=== PATIENT | female | born 1965 | race Caucasian/White ===

== ENCOUNTER → 2019-05-04 12:59 | Outpatient (CLI) | payer OTHER, MEDICAID, SELFPAY ==
--- NOTE | 2019-05-04 16:00 | DIET.PN ---
DIABETES Nutrition Initial Assessment:? ASSESS:?? 54 yof referred for type 2 diabetes. Pt with long standing hx (20 yrs). States she has lost 42# since starting the keto diet in September. She has been monitoring her BG up to 4x/day. States she would like to continue to lose weight and hopes to be able to reduce insulin. She is scheduled to meet with an guest experience manager next month to discuss insulin titration as she has been doing this on her own based on new dietary changes and recent weight loss. ?? LABS: Per pt report:? A1c: 5.9 (down from 7.4) FB-144 evenin-170 ? MEDS:??lantus 32u am/pm (down from 46u) Humalog SSI ? DIET: Per 24-hour recall:? Keto. High in veggies and lean meats. ? Weight: 225lb (down 42lb) ? Exercise:? walking/gardening NUTRITION DX 1. Altered Nutrition related labs related to impaired glucose metabolism, lack of previous exposure to accurate nutrition information as evidenced by pt report, dx of diabetes, previous diet high in refined carbohydrates.? INTERVENTION(s): 1. Discussed pathophysiology of diabetes. Reviewed A1c and its correlation to blood glucose numbers. Discussed recommended BG ranges. 2. Discussed importance of self-monitoring, how often, and when to check. 3. Reviewed hyper/hypoglycemia and treatment. 4. Reviewed safe disposal of equipment (strip/lancets/insulin needles). 5. Discussed impact of nutrition/diet on blood sugar control.? Discussed fed versus non-fed state.?? 6. Discussed the effect of carbohydrates/protein/fat on blood sugar control.? Stressed importance of consistent carbohydrate intake at each meal and provided instructions for recommended servings/portions of carbohydrates/protein per meal. Provided pt with educational material. 7. Reviewed carbohydrate counting and measuring carbohydrate content via serving sizes and reading nutrition labels.? Provided handouts.?? 8. Discussed the difference between simple versus complex carbohydrates and the effect of fiber on blood sugar control.? Discussed various methods to increase fiber content in diet. 9. Stressed importance of meal timing and not going >4-5 hours between meals. Encouraged adding protein to each meal to support glucose control. Provided list of protein foods. Discussed best protein options for heart health and to alleviate hunger. Patient agreeable. 10. Discussed healthy weight loss through diet and exercise to increase lean muscle mass.? Pt agreeable to walking daily and adding resistance training. MONITOR/EVALUATE: Anticipate good compliance.? Nutrition follow up schedule for 1 mo to review BG, weight, food record.
== END ==
PROVIDERS: Visit Provider Nurse Practitioner Family
DX: E11.9 Type 2 diabetes mellitus without complications (principal)
CPT/HCPCS: 97802

== ENCOUNTER → 2019-07-18 13:21 | Outpatient (CLI) | payer OTHER, MEDICAID, SELFPAY | PROVIDERS: PCP Nurse Practitioner Family; Visit Provider Internal Medicine Hematology & Oncology | DX: C50.912 Malignant neoplasm of unspecified site of left female breast (principal) | CPT/HCPCS: 77080; 77081 ==

== ENCOUNTER → 2019-07-20 08:58 | Outpatient (CLI) | payer OTHER, MEDICAID, SELFPAY ==
--- NOTE | 2019-07-20 09:02 | DI.MRI.S_ITS ---
BREAST MRI OF BOTH BREASTS: 07/20/2019 CLINICAL: Breast MRI. PROCEDURE: MR BREAST BI WO/W CON INDICATIONS: breast cancer TECHNIQUE: The patient was placed prone in a dedicated breast imaging coil. Precontrast axial STIR and 3D FLASH without fat saturation sequences were obtained. Both before and after bolus injection of contrast, sequential 1-minute axial 3D FLASH with fat saturation sequences for 3 time points, with subtraction images and maximum intensity projections (MIP's) generated. Delayed sagittal FLASH images with fat saturation were also obtained. Computer-aided detection, including computer algorithm analysis of MRI image data for lesion detection and characterization, pharmacokinetic analysis, with further physician review for interpretation, was performed. COMPARISON: [facility], [facility], US RIGHT BREAST, 12/21/2015, 12:49. MARAH Bello, MRI BREAST BILATERAL W / WO CONTRAST, 12/06/2015, 15:30. FINDINGS: Image quality: Patient is status post bilateral mastectomy with TRAM flap placement. Right breast: The right breast implant is intact. A 6 mm diameter enhancing soft tissue nodule is redemonstrated at 6:00 middle depth which has an unchanged appearance when compared with the MRI dated 12/06/15. Small vessels are present at the hilum of this mass consistent with a small lymph node. A 4 mm diameter enhancing nodule is present along the lateral aspect of the TRAM flap that the 9:00 position (series 12, image 62). This demonstrates a subtle, fatty hilum suggesting a normal-appearing lymph node. This is new when compared with the prior MRI dated 12/06/15. Left breast: The left breast implant is intact. No suspicious foci of enhancement or suspicious mass lesions. Miscellaneous: No axillary adenopathy. No intramammary adenopathy. Visualized portions of the lungs and mediastinum are grossly unremarkable. The heart is moderately enlarged, as before. No suspicious marrow enhancement where visualized. IMPRESSION: NEGATIVE 1. Status post bilateral mastectomy with TRAM flap placement and implant placement. Implants are intact. 2. No suspicious enhancement. BIRADS 1: Negative. This exam was interpreted at Station ID: [id number]. Electronically Signed By: Meg gamino/:07/20/2019 16:20:52 letter sent: Normal Exam ACR BI-RADS Category 1: Negative 3341F
[2019-07-20 10:41] LABS: Add Manual Diff / Slide Review NO; Basophils Absolute Auto 0 /uL (0-100); Basophils Percent Auto 0.3 % (0-2); Eosinophils Absolute Auto 100 /uL (0-450); Eosinophils Percent Auto 1.1 % (2-4); Hematocrit 39.6 % (36-46); Hemoglobin 13.6 g/dL (12.0-16.0); Lymphocytes Absolute Auto 900 /uL (1100-4500); Lymphocytes Percent Auto 14.3 % (25-40); Mean Corpuscular HGB Conc 34.4 % (30-36); Mean Corpuscular Hemoglobin 31.1 PG (26-34); Mean Corpuscular Volume 90.6 fL (80-100); Monocytes Absolute Auto 200 /uL (0-900); Monocytes Percent Auto 3.8 % (3-14); Neutrophils Absolute Auto 5100 /uL (1500-7000); Neutrophils Percent Auto 80.5 % (50-75); Platelet Count 218 X10^3/uL (150-400); Red Blood Cell Count 4.38 X10^6/uL (4.0-5.2); Red Cell Distribution Width 13.5 % (11.6-14.8); White Blood Cell Count 6.4 X10^3/uL (4.5-11.0)
[2019-07-20 11:17] LABS: Alanine Aminotransferase 61 IU/L (9-52); Albumin 4.5 g/dL (3.5-5.0); Albumin Globulin Ratio 1.7 (1.0-2.8); Alkaline Phosphatase 131 U/L (38-126); Aspartate Aminotransferase 35 IU/L (14-36); Bilirubin Total 0.6 mg/dL (0.2-1.3); Blood Urea Nitrogen 20 mg/dL (7-17); Calcium 9.9 mg/dL (8.4-10.2); Carbon Dioxide 28 mmol/L (22-32); Chloride 105 mmol/L (98-107); Estimated Glomerular Filt Rate > 60.0 mL/min (>60); Globulin 2.6 g/dL (1.7-4.1); Glucose 140 mg/dL (70-100); HEMOLYSIS < 15 (0-50); Potassium 4.4 mmol/L (3.4-5.1); Sodium 143 mmol/L (137-145); Total Protein 7.1 g/dL (6.3-8.2)
== END ==
PROVIDERS: PCP Nurse Practitioner Family; Visit Provider Internal Medicine Hematology & Oncology
DX: C50.912 Malignant neoplasm of unspecified site of left female breast (principal)
CPT/HCPCS: 36415; 77049; 80053; 85025; A9579

== ENCOUNTER → 2019-07-21 15:00 | Oncology outpatient (ONC) | payer MEDICARE, OTHER, MEDICAID, SELFPAY ==
[2019-06-27 10:46] VITALS: BP 137/77; PULSE 56; RESP 16; TEMP 36.8; O2SAT 98
--- NOTE | 2019-06-27 10:49 | ONC.CONS ---
History of Present Illness - Data of Consult Patient: new to practice Consult date: 06/27/19 Requesting Physician: YOUSUF Cobb Primary Care Provider: YOUSUF Cobb - Consult Narrative Reason for consult: Breast Cancer Narrative: Bev Aly is a 54 year old female with left breast cancer. Oncology History: She was diagnosed with multifocal T2 T1a moderately differentiated ductal carcinoma of the left breast on April 12, 2014. She underwent bilateral mastectomies with reconstruction on May 02, [address] Sandie Quick and Dr. Wheeler. Her breast cancer was ER positive, AK positive, and HER-2 negative, node positive, with DCIS present. Her cancer OncoType Dx score was 12. She completed adjuvant chemotherapy with CMF. Cytoxan was stopped early on September 2014 and patient chose to complete treatment earlier due to symptomatic side effects. She then completed adjuvant radiation therapy. She was put on letrazol, but she developed extreme hot flashes. Therefore, she stopped in 2017. Interim Events: She is now asymptomatic. She is trying to control weight. Her energy is starting to get better after weight loss. No new pain. She has chronic back pain, neck and pain. She had lots of injuries in the past. She has osteoarthris, rhueumatoid arthritis and cervical stenosis. Her appetite is pretty good. She is trying very hard to eat differently. SOB sometime. She has asthma. No n/v. No abdominal pain. She has gastric paresis. Most recent DEXA was in 2017. CC: Brionna Zepeda MD Home Medications and Allergies Home Medications Medication Instructions Recorded Confirmed Type Lantus U-100 Insulin 0 unit SQ BID #0 11/01/17 12/02/18 History amlodipine [Norvasc] 10 mg DAILY #0 11/01/17 12/02/18 History atorvastatin [Lipitor] PO QDAY #0 11/01/17 12/02/18 History insulin lispro [Humalog U-100 0 u SQ #0 11/01/17 12/02/18 History Insulin] albuterol sulfate HFA 90 1 puff INHALATION Q4-6H PRN 12/02/18 12/02/18 History mcg/actuation aerosol inhaler aspirin 81 mg tablet,delayed 81 mg PO DAILY 12/02/18 12/02/18 History release fluticasone propionate 50 1 spray NASAL DAILY 12/02/18 12/02/18 History mcg/actuation nasal spray,suspension omeprazole 40 mg capsule,delayed 40 mg PO BID cap 12/02/18 12/02/18 History release Glucosamine Chondroitin 06/27/19 History anastrozole 1 mg PO DAILY #90 tab 06/27/19 Rx cholecalciferol (vitamin D3) 3,000 unit PO DAILY 06/27/19 06/27/19 History [Vitamin D3] ciclesonide [Alvesco] 1 puff INHALATION BID 06/27/19 06/27/19 History epinephrine 0.3 mg IM Q15M PRN 06/27/19 06/27/19 History letrozole 2.5 mg PO DAILY 06/27/19 06/27/19 History multivitamin 1 tab PO DAILY 06/27/19 06/27/19 History omega 3-jrg-kgj-fish oil [Fish Oil] 1 cap PO DAILY 06/27/19 06/27/19 History Allergies Allergy/AdvReac Type Severity Reaction Status Date / Time adhesive tape Allergy Severe unknown Verified 06/27/19 11:08 buspirone [From BuSpar] Allergy Intermediate Verified 06/27/19 11:08 fluoxetine [From Prozac] Allergy Intermediate Verified 06/27/19 11:08 lisinopril Allergy Intermediate Verified 06/27/19 11:08 prednisone Allergy Intermediate Verified 06/27/19 11:08 metformin [METFORMIN] Allergy Unknown Verified 12/02/18 12:20 methotrexate [METHOTREXATE] AdvReac Unknown GI upset Verified 12/02/18 12:20 Medical History - Medical, Surgical, Family History Medical History: Medical History (Updated 06/27/19 @ 11:38 by Brionna Zepeda MD) Asthma Biceps tendon rupture Diabetes Femur fracture, right H/O: hysterectomy Hyperlipidemia Hypertension Obesity Osteoarthritis Rheumatoid arthritis Surgical History: Surgical History (Updated 06/27/19 @ 11:10 by Brionna Zepeda MD) H/O mastectomy History of hip surgery Family History: Family History (Updated 06/27/19 @ 11:11 by Brionna Zepeda MD) Grandmother No problems noted. Grandfather Lung cancer - Social History Smoking Status: Never smoker Substance Use Type: does not use Alcohol Intake: current (rarely) Review of Systems - Patient Self-Reported Symptoms SR Genitourinary issues: Frequent urination SR Musculoskeletal issues: Joint pain or swelling, Muscle pain or cramps, Back or neck pain, Cold hands or feet, Bone pain SR Endocrine issues: Cold intolerance, Heat intolerance, Hot flashes All systems PM: reviewed and no additional remarkable complaints except as stated Exam Vital signs: Vital Signs Temp Pulse Resp BP Pulse Ox 06/27/19 10:46 98.3 F 56 L 16 137/77 98 Intake and Output 06/26/19 06/27/19 06/27/19 23:59 07:59 15:59 Other: Weight 95.1 kg Patient Weight 06/27/19 23:59 Weight 95.1 kg Narrative: ECOG 1 Gen: WDWN, NAD, pleasant and cooperative. HEENT: NCAT, EOMI, PERRLA, anicteric sclera. Neck: Supple, No palpable thyromegaly or lymphadenopathy. Respiratory: CTAB, no wheezes audible. No JVD Cardiovascular: RRR, S1 and S2 normal, no M/G/R. Abdomen: Soft, NTND, BS normal, no palpable organomegaly Extremities: No LE pitting edema. Lymphatic: no palpable lymph nodes in the neck, axillae, or groins. Neurological: AOx3, CN II-XII grossly intact. No focal motor or sensory deficit. Psychiatric: Good judgment and insight; normal affect; normal thought process; cooperative, no depression, no anxiety. Breast exam: Both breasts were status post previous mastectomy with reconstruction. Both breasts felt nodular and lumpy especially in the lower outer have. No palpable lymph nodes in the axilla. Results - Labs Laboratory Last Values WBC 6.4 X10^3/uL (4.5-11.0) 06/27/19 11:49 RBC 4.56 X10^6/uL (4.0-5.2) 06/27/19 11:49 Hgb 14.0 g/dL (12.0-16.0) 06/27/19 11:49 Hct 40.8 % (36-46) 06/27/19 11:49 MCV 89.5 fL (80-100) 06/27/19 11:49 MCH 30.7 PG (26-34) 06/27/19 11:49 MCHC 34.3 % (30-36) 06/27/19 11:49 RDW 13.8 % (11.6-14.8) 06/27/19 11:49 Plt Count 221 X10^3/uL (150-400) 06/27/19 11:49 Neut % (Auto) 74.4 % (50-75) 06/27/19 11:49 Lymph % (Auto) 19.1 % (25-40) L 06/27/19 11:49 [place] % (Auto) 4.6 % (3-14) 06/27/19 11:49 Eos % (Auto) 1.3 % (2-4) L 06/27/19 11:49 Baso % (Auto) 0.6 % (0-2) 06/27/19 11:49 Neut # (Auto) 4700 /uL (5739-9053) 06/27/19 11:49 Lymph # (Auto) 1200 /uL (1845-1530) 06/27/19 11:49 [place] # (Auto) 300 /uL (0-900) 06/27/19 11:49 Eos # (Auto) 100 /uL (0-450) 06/27/19 11:49 Baso # (Auto) 0 /uL (0-100) 06/27/19 11:49 Sodium 142 mmol/L (137-145) 06/27/19 11:49 Potassium 3.9 mmol/L (3.4-5.1) 06/27/19 11:49 Chloride 105 mmol/L (98-107) 06/27/19 11:49 Carbon Dioxide 27 mmol/L (22-32) 06/27/19 11:49 BUN 12 mg/dL (7-17) 06/27/19 11:49 Creatinine 0.50 mg/dL (0.52-1.04) L 06/27/19 11:49 Estimated GFR > 60.0 mL/min (>60) 06/27/19 11:49 BUN/Creatinine Ratio 24.0 (6-22) H 06/27/19 11:49 Glucose 102 mg/dL (70-100) H 06/27/19 11:49 Calcium 9.8 mg/dL (8.4-10.2) 06/27/19 11:49 Total Bilirubin 0.6 mg/dL (0.2-1.3) 06/27/19 11:49 AST 33 IU/L (14-36) 06/27/19 11:49 ALT 53 IU/L (9-52) H 06/27/19 11:49 Alkaline Phosphatase 128 U/L (38-126) H 06/27/19 11:49 Total Protein 7.5 g/dL (6.3-8.2) 06/27/19 11:49 Albumin 4.6 g/dL (3.5-5.0) 06/27/19 11:49 Globulin 2.9 g/dL (1.7-4.1) 06/27/19 11:49 Albumin/Globulin Ratio 1.6 (1.0-2.8) 06/27/19 11:49 Assessment and Plan (1) Breast cancer, left breast Left breast T2 N1a IDC, ER positive, AK positive, Her2 negative, Node positive, status post bilateral mastectomies with reconstruction and left axillary lymph node dissection on April 12, 2014. DCIS present. OncoType Dx score was 12. She completed adjuvant chemotherapy with CMF followed by adjuvant radiation. She completed about 2-3 years of Letrazol and stopped due to hot flashes in 2017 On my physical examination, both breasts felt nodular and lumpy that might be related to previous breast reconstruction. She denies any tenderness. I did not find any lymph nodes in the axilla bilaterally. I recommended that we obtain MRI breast to evaluate and also serve as baseline. Since 2017, patient has not had any endocrine therapy. I explained to the patient that usually patient is required to take endocrine therapy for at least 5 years. I recommended that patient be put back on endocrine therapy. I recommended anastrozole 1 mg once a day. Patient voiced understanding. I also explained to the patient that aromatase inhibitor is associated with increased risk of osteoporosis. I will obtain an DEXA scan to evaluate. Recommended patient take calcium and vitamin-D. Plan: 1. Breast MR bilateral 2. DEXA scan 3. CBC, CMP 4. Anastrozole 1 mg daily 5. RTC in 2 weeks.
[2019-06-27 11:57] LABS: Add Manual Diff / Slide Review NO; Basophils Absolute Auto 0 /uL (0-100); Basophils Percent Auto 0.6 % (0-2); Eosinophils Absolute Auto 100 /uL (0-450); Eosinophils Percent Auto 1.3 % (2-4); Hematocrit 40.8 % (36-46); Lymphocytes Absolute Auto 1200 /uL (1100-4500); Lymphocytes Percent Auto 19.1 % (25-40); Mean Corpuscular HGB Conc 34.3 % (30-36); Mean Corpuscular Hemoglobin 30.7 PG (26-34); Mean Corpuscular Volume 89.5 fL (80-100); Monocytes Absolute Auto 300 /uL (0-900); Monocytes Percent Auto 4.6 % (3-14); Neutrophils Absolute Auto 4700 /uL (1500-7000); Neutrophils Percent Auto 74.4 % (50-75); Platelet Count 221 X10^3/uL (150-400); Red Blood Cell Count 4.56 X10^6/uL (4.0-5.2); Red Cell Distribution Width 13.8 % (11.6-14.8); White Blood Cell Count 6.4 X10^3/uL (4.5-11.0)
[2019-06-27 12:11] LABS: Alanine Aminotransferase 53 IU/L (9-52); Albumin 4.6 g/dL (3.5-5.0); Albumin Globulin Ratio 1.6 (1.0-2.8); Alkaline Phosphatase 128 U/L (38-126); Aspartate Aminotransferase 33 IU/L (14-36); Bilirubin Total 0.6 mg/dL (0.2-1.3); Blood Urea Nitrogen 12 mg/dL (7-17); Calcium 9.8 mg/dL (8.4-10.2); Carbon Dioxide 27 mmol/L (22-32); Chloride 105 mmol/L (98-107); Estimated Glomerular Filt Rate > 60.0 mL/min (>60); Globulin 2.9 g/dL (1.7-4.1); Glucose 102 mg/dL (70-100); HEMOLYSIS < 15 (0-50); Potassium 3.9 mmol/L (3.4-5.1); Sodium 142 mmol/L (137-145); Total Protein 7.5 g/dL (6.3-8.2)
[2019-07-21 14:45] VITALS: BP 130/76; PULSE 60; RESP 20; TEMP 37; O2SAT 99
--- NOTE | 2019-07-21 14:52 | ONC.PN ---
PN -Subjective Interval history: ID/CC Bev Aly is a 54 year old female with left breast cancer. Oncology History: She was diagnosed with multifocal T2 T1a moderately differentiated ductal carcinoma of the left breast on April 12, 2014. She underwent bilateral mastectomies with reconstruction on May 02, [address] Sandie Quick and Dr. Wheeler. Her breast cancer was ER positive, NE positive, and HER-2 negative, node positive, with DCIS present. Her cancer OncoType Dx score was 12. She completed adjuvant chemotherapy with CMF. Cytoxan was stopped early on September 2014 and patient chose to complete treatment earlier due to symptomatic side effects. She then completed adjuvant radiation therapy. She was put on letrazol, but she developed extreme hot flashes. Therefore, she stopped in 2016. Interim Events: During her last visit, we discussed about re-initiating treatment with anastrozole. However after talking with her friend she was very much worried about the potential side effects. She recalled that she had experienced horrible arthralgia and hot flashes with the use of letrozole. While she was taking letrozole, she became ?demented? and could not remember words. After weighing the benefit and risk, she was asking if taking anastrozole is absolutely necessary. Patient also underwent DEXA scan. It showed osteopenia in the spine as well as in the left forearm. Normal bone mineral density in bilateral femurs. She also underwent breast MRI which showed status post bilateral mastectomy with tram flap placement and implant placement. Implants are intact. No suspicious enhancement. - Patient Self-Reported Symptoms SR Genitourinary issues: Frequent urination SR Musculoskeletal issues: Joint pain or swelling, Muscle pain or cramps, Back or neck pain, Cold hands or feet, Bone pain SR Endocrine issues: Cold intolerance, Heat intolerance, Hot flashes - Additional ROS All systems PM: reviewed and no additional remarkable complaints except as stated Home Medications and Allergies Home Medications Medication Instructions Recorded Confirmed Type Lantus U-100 Insulin 0 unit SQ BID #0 11/01/17 12/02/18 History amlodipine [Norvasc] 10 mg DAILY #0 11/01/17 07/21/19 History atorvastatin [Lipitor] 10 mg PO QDAY #0 11/01/17 07/21/19 History insulin lispro [Humalog U-100 0 u SQ #0 11/01/17 12/02/18 History Insulin] albuterol sulfate 90 mcg/actuation 1 puff INHALATION Q4-6H PRN 12/02/18 07/21/19 History aerosol inhaler aspirin 81 mg tablet,delayed 81 mg PO DAILY 12/02/18 07/21/19 History release fluticasone propionate 50 1 spray NASAL DAILY 12/02/18 07/21/19 History mcg/actuation nasal spray,suspension omeprazole 40 mg capsule,delayed 40 mg PO BID cap 12/02/18 12/02/18 History release Glucosamine Chondroitin 06/27/19 History anastrozole 1 mg PO DAILY #90 tab 06/27/19 Rx cholecalciferol (vitamin D3) 3,000 unit PO DAILY 06/27/19 07/21/19 History [Vitamin D3] ciclesonide [Alvesco] 1 puff INHALATION BID 06/27/19 07/21/19 History epinephrine 0.3 mg IM Q15M PRN 06/27/19 07/21/19 History letrozole 2.5 mg PO DAILY 06/27/19 06/27/19 History multivitamin 1 tab PO DAILY 06/27/19 06/27/19 History omega 1-iun-aws-fish oil [Fish Oil] 1 cap PO DAILY 06/27/19 06/27/19 History Allergies Allergy/AdvReac Type Severity Reaction Status Date / Time adhesive tape Allergy Severe unknown Verified 06/27/19 11:08 buspirone [From BuSpar] Allergy Intermediate Verified 06/27/19 11:08 fluoxetine [From Prozac] Allergy Intermediate Verified 06/27/19 11:08 lisinopril Allergy Intermediate Verified 06/27/19 11:08 prednisone Allergy Intermediate Verified 06/27/19 11:08 metformin [METFORMIN] Allergy Unknown Verified 12/02/18 12:20 methotrexate [METHOTREXATE] AdvReac Unknown GI upset Verified 12/02/18 12:20 Exam Vital signs: Vital Signs Temp Pulse Resp BP Pulse Ox 07/21/19 14:45 98.6 F 60 20 130/76 99 Intake and Output 07/20/19 07/21/19 07/21/19 23:59 07:59 15:59 Other: Weight 94.5 kg Patient Weight 07/21/19 23:59 Weight 94.5 kg Narrative: I DID NOT PERFORM ANY PHYSICAL EXAMINATION TODAY. Results - Labs Laboratory Last Values WBC 6.4 X10^3/uL (4.5-11.0) 06/27/19 11:49 RBC 4.56 X10^6/uL (4.0-5.2) 06/27/19 11:49 Hgb 14.0 g/dL (12.0-16.0) 06/27/19 11:49 Hct 40.8 % (36-46) 06/27/19 11:49 MCV 89.5 fL (80-100) 06/27/19 11:49 MCH 30.7 PG (26-34) 06/27/19 11:49 MCHC 34.3 % (30-36) 06/27/19 11:49 RDW 13.8 % (11.6-14.8) 06/27/19 11:49 Plt Count 221 X10^3/uL (150-400) 06/27/19 11:49 Neut % (Auto) 74.4 % (50-75) 06/27/19 11:49 Lymph % (Auto) 19.1 % (25-40) L 06/27/19 11:49 [place] % (Auto) 4.6 % (3-14) 06/27/19 11:49 Eos % (Auto) 1.3 % (2-4) L 06/27/19 11:49 Baso % (Auto) 0.6 % (0-2) 06/27/19 11:49 Neut # (Auto) 4700 /uL (4934-6706) 06/27/19 11:49 Lymph # (Auto) 1200 /uL (0877-1538) 06/27/19 11:49 [place] # (Auto) 300 /uL (0-900) 06/27/19 11:49 Eos # (Auto) 100 /uL (0-450) 06/27/19 11:49 Baso # (Auto) 0 /uL (0-100) 06/27/19 11:49 Sodium 142 mmol/L (137-145) 06/27/19 11:49 Potassium 3.9 mmol/L (3.4-5.1) 06/27/19 11:49 Chloride 105 mmol/L (98-107) 06/27/19 11:49 Carbon Dioxide 27 mmol/L (22-32) 06/27/19 11:49 BUN 12 mg/dL (7-17) 06/27/19 11:49 Creatinine 0.50 mg/dL (0.52-1.04) L 06/27/19 11:49 Estimated GFR > 60.0 mL/min (>60) 06/27/19 11:49 BUN/Creatinine Ratio 24.0 (6-22) H 06/27/19 11:49 Glucose 102 mg/dL (70-100) H 06/27/19 11:49 Calcium 9.8 mg/dL (8.4-10.2) 06/27/19 11:49 Total Bilirubin 0.6 mg/dL (0.2-1.3) 06/27/19 11:49 AST 33 IU/L (14-36) 06/27/19 11:49 ALT 53 IU/L (9-52) H 06/27/19 11:49 Alkaline Phosphatase 128 U/L (38-126) H 06/27/19 11:49 Total Protein 7.5 g/dL (6.3-8.2) 06/27/19 11:49 Albumin 4.6 g/dL (3.5-5.0) 06/27/19 11:49 Globulin 2.9 g/dL (1.7-4.1) 06/27/19 11:49 Albumin/Globulin Ratio 1.6 (1.0-2.8) 06/27/19 11:49 Assessment and Plan (1) Breast cancer, left breast Overview: Left breast T2 N1a IDC, ER positive, NE positive, Her2 negative, Node positive, status post bilateral mastectomies with reconstruction and left axillary lymph node dissection on April 12, 2014. DCIS present. OncoType Dx score was 12. She completed adjuvant chemotherapy with CMF followed by adjuvant radiation. She completed about 2-3 years of Letrazol and stopped due to hot flashes in 2017 Assessment: I reviewed the MRI breast results with the patient. I told her that there is no abnormal findings. Then I talked with her about the benefit and risk of taking anastrozole. I think the small benefit probably does not justify the severe arthralgia and memory issues. I think continued observation is an acceptable option. Patient voiced understanding. Today we also talked about possibly using tamoxifen. However patient has had history of thromboembolism in the past. I do not think it is a good idea to use tamoxifen given its associated risk of venous thromboembolism. Plan: 1. OK not to start Anastrazole 2. RTC in one year, MRI breast, CBC, CMP (2) Osteopenia I also reviewed the DEXA scan results with the patient. Patient has osteopenia affecting the left wrist, and the lumbar spine. Patient's bone mineral density of bilateral femurs are normal. I talked with her that continued calcium and vitamin-D are recommended.
--- NOTE | 2020-07-12 15:34 | ONC.SCHED ---
Appt for 07/[address] Zepeda ordered imaging after last appt and pt has new insurance that requires authorization which her PCP is working on. We will gina to reschedule her appt when we get updated insurance info.
== END ==
PROVIDERS: PCP Nurse Practitioner Family; Visit Provider Internal Medicine Hematology & Oncology
DX: Z08 Encounter for follow-up examination after completed treatment for malignant neoplasm (principal); Z85.3 Personal history of malignant neoplasm of breast; M85.88 Other specified disorders of bone density and structure, other site; M85.832 Other specified disorders of bone density and structure, left forearm
CPT/HCPCS: 36415; 80053; 85025; 99205; 99214; 99215

== ENCOUNTER → 2020-12-28 14:25 | Outpatient (CLI) | payer MEDICARE, SELFPAY | PROVIDERS: PCP Internal Medicine; Referring Provider Internal Medicine; Visit Provider Internal Medicine | DX: M85.832 Other specified disorders of bone density and structure, left forearm (principal); Z78.0 Asymptomatic menopausal state; E11.9 Type 2 diabetes mellitus without complications; M06.9 Rheumatoid arthritis, unspecified; Z85.3 Personal history of malignant neoplasm of breast | CPT/HCPCS: 77080; 77081 ==

== ENCOUNTER → 2021-12-24 07:56 | Outpatient (CLI) | payer MEDICARE, MEDICAID, SELFPAY ==
--- NOTE | 2021-12-24 | DI.ECHO.S_ITS ---
[place] [facility]---------+ [facility] +---------+ : : [address] : : : : [id number] : : : : Phone: [phone]+ Echocardiogram Report + + :Name: CHRISTOPHE QUINTANILLA Study Date: 12/24/2021 Height: 67 in : :[facility] ReadingLocation: Weight: 220 lb : : Gender: Female BSA: 2.1 m2 : :: 1965 Age: 56 yrs BP: 152/92 mmHg: :Reason For Study: ABNORMAL EKG : :Ordering Physician: CHET, : :BENJI Performed By: Italia Mcwilliams : :Referring: BENJI ROSENBERG : + + Interpretation Summary The left ventricle is normal in size. Left ventricular systolic function appears normal without focal wall motion abnormalities. The ejection fraction is estimated to be 60-65%. Diastolic parameters suggest probable normal left ventricular diastolic function and normal filling pressures. The right ventricle is normal in size and function. The left atrial size is normal. Right atrial size is normal. There is no significant valvular heart disease. The ascending aorta is mildly enlarged. Procedure: A two-dimensional transthoracic echocardiogram with color flow and Doppler was performed. The study quality was technically adequate. There is no prior echocardiogram noted for this patient. The patient was in sinus rhythm with heart rates between 59-66 bpm during the exam. Left Ventricle: The left ventricle is normal in size. Left ventricular wall thickness is at the upper limits of normal. Left ventricular systolic function appears normal without focal wall motion abnormalities. The ejection fraction is estimated to be 60-65%. Diastolic parameters suggest probable normal left ventricular diastolic function and normal filling pressures. Right Ventricle: The right ventricle is normal in size and function. Atria: The left atrial size is normal. Right atrial size is normal. There is no Doppler evidence for an interatrial shunt. Mitral Valve: The mitral valve is normal in structure and function. There is trace mitral regurgitation. Aortic Valve: The aortic valve is trileaflet. The aortic valve opens well. There is no aortic valve stenosis. No aortic regurgitation is present. Tricuspid Valve: The tricuspid valve is normal in structure and function. There is trace tricuspid regurgitation. Pulmonic Valve: The pulmonic valve leaflets are thin and pliable; valve motion is normal. There is no pulmonic valvular regurgitation. There is no significant valvular heart disease. Great Vessels: The aortic root is normal size. The ascending aorta is mildly enlarged. The IVC is of normal diameter and collapses greater than 50% with a sniff. This suggests a low right atrial pressure of 3 mm Hg. Pericardium/ Pleura There is no pericardial effusion. There is no pleural effusion. MMode/2D Measurements & Calculations LVIDd: 4.6 cm LVOT diam: 2.1 cm LVIDs: 2.9 cm Ao root diam: 3.2 cm FS: 37.0 % asc Aorta Diam: 3.6 cm IVSd: 0.91 cm Ao Arch Diam (Prox Trans): 3.0 cm LVPWd: 1.1 cm LV abreu. diameter/BSA (cm/m^2): 2.2 LV sys. diameter/BSA (cm/m^2): 1.4 LA A2 area: 21.1 cm2 RA long axis: 5.3 cm LA A4 area: 18.9 cm2 RA area: 17.7 cm2 LA length (vol): 5.6 cm RA vol: 50.6 ml LA vol: 60.2 ml RA : 24.0 ml/m2 LA vol index: 28.6 ml/m2 IVC diam: 1.3 cm RVD1 (basal): 3.6 cm TAPSE: 2.1 cm Doppler Measurements & Calculations Ao V2 max: 161.8 cm/sec LVOT Max Immanuel: 82.9 cm/sec Ao V2 mean: 106.2 cm/sec LV V1 max P.8 mmHg Ao max P.5 mmHg LV V1 VTI: 19.5 cm Ao mean P.3 mmHg KRANTHI(I,D): 1.9 cm2 Ao V2 VTI: 35.1 cm KRANTHI(V,D): 1.8 cm2 sev ratio: 0.55 KRANTHI indexed to BSA (cm^2/m^2): 0.92 MV E max immanuel: 74.6 cm/sec PA V2 max: 98.4 cm/sec MV A max immanuel: 60.3 cm/sec PA V2 mean: 68.6 cm/sec MV E/A: 1.2 PA mean P.1 mmHg Med Peak E' Immanuel: 5.7 cm/sec PA pr(Accel): 22.5 mmHg E/E' med: 13.2 Lat Peak E' Immanuel: 10.0 cm/sec E/E' lat: 7.5 E/e' average: 10.3 MV dec time: 0.25 sec SVLVOT): 67.9 ml Reading Physician:12:46 PM
== END ==
PROVIDERS: PCP Internal Medicine; Referring Provider Internal Medicine; Visit Provider Internal Medicine
DX: R94.31 Abnormal electrocardiogram [ECG] [EKG] (principal); I77.89 Other specified disorders of arteries and arterioles
CPT/HCPCS: 93306

== ENCOUNTER → 2022-04-25 16:55 | Outpatient (ROUT) | payer MEDICARE, SELFPAY ==
[2022-04-25 18:50] LABS: Coronavirus HKU1 Detected (Not Detect)
[2022-04-25 18:51] LABS: Adenovirus Not Detected (Not Detect); B. parapertussis Not Detected (Not Detecte); Bordetella pertussis Not Detected (Not Detecte); Chlamydophila pneumoniae Not Detected (Not Detect); Coronavirus 229E Not Detected (Not Detect); Coronavirus NL 63 Not Detected (Not Detect); Coronavirus OC43 Not Detected (Not Detect); Human Metapneumovirus Detected (Not Detect); Human Rhinovirus/Enterovirus Not Detected (Not Detect); Influenza A Not Detected (Not Detect); Influenza B Not Detected (Not Detect); Mycoplasma pneumoniae Not Detected (Not Detect); Parainfluenza Virus 1 Not Detected (Not Detect); Parainfluenza Virus 2 Not Detected (Not Detect); Parainfluenza Virus 3 Not Detected (Not Detect); Parainfluenza Virus 4 Not Detected (Not Detect); Respiratory Syncytial Virus Not Detected (Not Detect); SARS- CoV-2 Not Detected (Not Detecte)
== END ==
PROVIDERS: PCP Internal Medicine; Visit Provider Family Medicine
DX: R05.1 Acute cough (principal); Z20.822 Contact with and (suspected) exposure to COVID-19; R07.0 Pain in throat; R09.89 Other specified symptoms and signs involving the circulatory and respiratory systems
CPT/HCPCS: 87633

== ENCOUNTER → 2022-12-03 14:01 | Outpatient (CLI) | payer MEDICARE, SELFPAY | PROVIDERS: PCP Internal Medicine; Referring Provider Internal Medicine; Visit Provider Internal Medicine | DX: Z78.0 Asymptomatic menopausal state (principal); M85.88 Other specified disorders of bone density and structure, other site; M06.9 Rheumatoid arthritis, unspecified; Z92.23 Personal history of estrogen therapy; Z90.710 Acquired absence of both cervix and uterus | CPT/HCPCS: 77080 ==

== ENCOUNTER → 2025-02-07 13:26 | Outpatient (CLI) | payer OTHER, MEDICAID, SELFPAY ==
--- NOTE | 2025-02-07 13:30 | DI.RAD.S_ITS ---
PROCEDURE: XR FOOT RT MIN 3V INDICATIONS: FOOT PAIN TECHNIQUE: 3 views of the foot were acquired. COMPARISON: None. FINDINGS: Bones: There are no osseous abnormalities Joints: Mild degenerative change of the 1st MTP and 2nd through 5th DIP joints appreciated Soft tissues: No soft tissue abnormality. IMPRESSION: Degeneration Dictated by: Juan Stoner M.D. on 02/08/2025 at 7:50 Approved by: Juan Stoner M.D. on 02/08/2025 at 7:50
--- NOTE | 2025-02-07 13:30 | DI.RAD.S_ITS ---
PROCEDURE: XR KNEE RT 3V INDICATIONS: KNEE PAIN TECHNIQUE: 3 views of the knee were acquired. COMPARISON: None. FINDINGS: Bones: There are no osseous abnormalities. 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 Soft tissues: Normal IMPRESSION: Degeneration Dictated by: Juan Stoner M.D. on 02/08/2025 at 7:50 Approved by: Juan Stoner M.D. on 02/08/2025 at 7:51
--- NOTE | 2025-02-07 13:30 | DI.RAD.S_ITS ---
PROCEDURE: XR FOOT LT MIN 3V INDICATIONS: FOOT PAIN TECHNIQUE: 3 views of the foot were acquired. COMPARISON: None. FINDINGS: Bones: There are no osseous abnormalities Joints: Moderate 1st MTP and 2nd through 5th interphalangeal degeneration noted Soft tissues: No soft tissue abnormality. IMPRESSION: Degeneration Dictated by: Juan Stoner M.D. on 02/08/2025 at 7:49 Approved by: Juan Stoner M.D. on 02/08/2025 at 7:49
== END ==
LOC: RAD 13:28
PROVIDERS: PCP Family Medicine; Referring Provider Family Medicine; Visit Provider Family Medicine
DX: M17.11 Unilateral primary osteoarthritis, right knee (principal); M19.072 Primary osteoarthritis, left ankle and foot; M19.071 Primary osteoarthritis, right ankle and foot; M25.561 Pain in right knee; M79.671 Pain in right foot; M79.672 Pain in left foot
CPT/HCPCS: 73562; 73630

== ENCOUNTER → 2025-06-13 11:34 | Outpatient (CLI) | payer OTHER, MEDICAID, SELFPAY ==
--- NOTE | 2025-06-13 12:01 | EKG_ITS ---
[facility] [address] [place] [address] Test Date: 2025-06-13 Pat Name: Bev Caicedo Department: Room: Gender: Female [employer] Collector: : 1965 Requested By: Order Number: [id number] Reading MD: Salbador Monroy Measurements Intervals [place] Rate: 52 P: 25 IA: 140 QRS: 8 QRSD: 100 T: 29 QT: 468 QTc: 435 Interpretive Statements Sinus bradycardia Minimal voltage criteria for LVH, may be normal variant ( Adonis product ) Electronically Signed On 06-14-2025 15:02:58 PDT by Salbador Monroy
[2025-06-13 12:02] LABS: Add Manual Diff / Slide Review NO; Hematocrit 36.2 % (36-46); Hemoglobin 12.9 g/dL (12.0-16.0); Lymphocytes Absolute Auto 1100 /uL (1100-4500); Mean Corpuscular HGB Conc 35.7 % (30-36); Mean Corpuscular Hemoglobin 32.0 PG (26-34); Mean Corpuscular Volume 89.7 fL (80-100); Platelet Count 240 X10^3/uL (150-400)
[2025-06-13 12:12] LABS: Appearance Urine UA CLEAR; Bilirubin Urine UA NEGATIVE (NEGATIVE); Color Urine UA YELLOW; Glucose Urine UA NEGATIVE (Negative); Ketones Urine UA NEGATIVE (NEGATIVE); Leukocyte Esterase Urine UA NEGATIVE (NEGATIVE); Nitrite Urine UA NEGATIVE (Negative); Occult Blood Urine UA NEGATIVE (Negative); Protein Urine UA NEGATIVE (Negative); Specific Gravity Urine UA 1.025 (1.000-1.035); Urobilinogen Urine UA 0.2 E.U./dL (0.2)
[2025-06-13 12:15] LABS: Hemoglobin A1C% w Est Avg Glu 5.9 % (4.0-6.0)
[2025-06-13 12:16] LABS: pH Urine UA 5.5 (4.5-8.0)
[2025-06-13 12:26] LABS: Blood Urea Nitrogen 16 mg/dL (7-17); Calcium 9.4 mg/dL (8.4-10.2); Carbon Dioxide 26 mmol/L (22-32); Chloride 105 mmol/L (98-107); Estimated Glomerular Filt Rate > 60 mL/min (>60); Glucose 78 mg/dL (70-99); HEMOLYSIS < 15 (0-50); Potassium 4.1 mmol/L (3.4-5.1); Sodium 139 mmol/L (137-145)
== END ==
LOC: RESP 11:35
PROVIDERS: PCP Family Medicine; Referring Provider Orthopaedic Surgery; Visit Provider Orthopaedic Surgery
DX: Z01.818 Encounter for other preprocedural examination (principal); N39.0 Urinary tract infection, site not specified; R73.9 Hyperglycemia, unspecified; Z01.812 Encounter for preprocedural laboratory examination
CPT/HCPCS: 36415; 80048; 81001; 83036; 85025; 93005